=== PATIENT | female | born 1940 | race Caucasian/White ===

== ENCOUNTER 2024-02-15 07:57 | Day surgery (SDC) | payer OTHER, MEDICARE ==
[2024-02-10 12:10] LABS: PT Prothrombin Time 10.4 SECONDS (9.4-12.5); Protime INR 0.93
--- NOTE | 2024-02-10 12:11 | RAD REPORT ---
EXAMINATION: TWO VIEW CHEST XR CLINICAL INDICATION: Female, 83 years old. [facility] pre op for day surgery. Prior smoker. History of right breast surgery. TECHNIQUE: 2 view radiographs of the chest were performed. COMPARISON: No prior exam. FINDINGS: The lungs are hyperexpanded suggesting COPD. No pneumothorax or sizable effusion. The heart is normal in size. Mediastinal contours are unremarkable. IMPRESSION: No acute or significant abnormalities.
[2024-02-10 12:15] LABS: Absolute Eosinophils 0.1 K/uL (0-0.5); Absolute Lymphocytes (CBC) 3.3 K/uL (0.7-4.9); Absolute Monocytes 0.4 K/uL (0.1-1.3); Absolute Neutrophil 5.1 K/uL (1.8-8.0); Basophils % 0.4 % (0-1.3); Eosinophils % 1.3 % (0-4.4); Hematocrit 44.5 % (36.0-45.0); Hemoglobin 14.9 g/dL (12.0-15.0); Lymphocytes % 36.3 % (15.3-44.8); MCH 31.2 pg (27.0-35.0); MCHC 33.5 g/dL (32.0-36.0); MPV 7.2 fL (7.6-11.3); Monocytes % 4.7 % (3.3-12.3); Neutrophils % 57.3 % (41.7-73.7); Nucleated Red Blood Cells % 0.1 % (0-0); Platelets 368 thou/uL (152-406); RBC Red Blood Cell Count 4.79 M/uL (3.86-4.86); Red Cell Distribution Width 13.2 % (12.1-15.2)
[2024-02-10 12:19] LABS: Anion Gap 7.4 mEq/L (5.0-15.0); Potassium 4.4 mEq/L (3.5-5.1)
--- NOTE | 2024-02-14 12:09 | EKG ---
Test Date: 2024-02-10 Test Time: 12:53:16 Medical Charge Entry Specialist: RODY MEASUREMENT RESULTS: Intervals: Rate: 67 OR: 148 QRSD: 78 QT: 408 QTc: 431 [place]: P: 79 OR: 148 QRS: 80 T: 70 INTERPRETIVE STATEMENTS: Normal sinus rhythm Normal ECG No previous ECG available for comparison Electronically Signed On 02-14-24 12:03:28 [employer] COORDINATOR by Brigido Kohler
[2024-02-15] MEDS: Ringers Lactate 1,000 ML IV ONE (08:30)
[2024-02-15] MEDS ORDERED: propofoL 200 MG/20 ML VIAL IV ONE (09:34)
[2024-02-15] MEDS ORDERED: FENTANYL CITR 100 MCG/2 ML ONE (09:36)
[2024-02-15] MEDS ORDERED: LIDOCAINE 1% MPF 5 ML VIAL ONE (09:36)
[2024-02-15] MEDS ORDERED: ONDANSETRON 4 MG/2 ML VIAL ONE (09:37)
[2024-02-15] MEDS ORDERED: dexAMETHasone 10 MG/ML VIAL ONE (10:38)
[2024-02-15] MEDS: CEFAZOLIN SODIUM 1 GM/VIAL ONE (10:39)
[2024-02-15] MEDS ORDERED: GLYCOPYRROLATE 0.2 MG/ML SYR ONE (10:51)
[2024-02-15] MEDS ORDERED: EPHEDRINE SULF 50 MG/ML VIAL ONE (10:51)
[2024-02-15] MEDS: Gemcitabine 52.6 ML IS ONE (11:15)
[2024-02-15 11:26] VITALS: O2SAT 100
[2024-02-15] MEDS ORDERED: CODEINE 30MG/APAP 300MG TAB PO PRN (11:48)
--- NOTE | 2024-02-15 11:54 | P.OP ---
Date of Service: 02/15/24 Preoperative diagnosis: Bladder lesion/tumor Postoperative diagnosis: Papillary urothelial neoplasm Principal procedures: Cystoscopy with bladder biopsies and fulguration Insertion of 18 [place]orean urethral Brar catheter Instillation of gemcitabine 2 g and 50 cc normal saline intravesical chemotherapy Indication for procedure: 83-year-old woman with history of microscopic hematuria and underwent evaluation including cystoscopy which revealed a sessile and slightly papillary tumor lateral to the left ureteral orifice. She was counseled on the potential that it might represent a malignancy, and biopsy with fulguration was recommended. Also, given its clinical appearance suspicious for low-grade papillary urothelial carcinoma, I did recommend a dose of intravesical gemcitabine perioperatively to decrease the risk of recurrence and/or new sites of tumor implantation. Procedure note: The patient was consented in the preoperative holding area before being transferred to the operative suite where general anesthesia was induced. She was given Ancef 1 g IV antimicrobial prophylaxis, and pneumoboots were provided for DVT prophylaxis. She was placed in the lithotomy position, padded and secured to the table appropriately. Her genitalia was prepped with Hibiclens and she was draped in standard fashion. 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 As a result, I utilized the blunt obturator and was able to navigate the sheath via her urethra into her bladder with relative ease. I decompressed the bladder of fluid and clear yellow urine. I then surveyed the bladder in its entirety. The ureteral orifices were orthotopic in location, and lateral to the left ureteral orifice and slightly posteriorly, there was a 1 to 1.5 cm area of sessile with slightly papillary tumor with some cystic change peripherally. As a result, I utilized a cold cup biopsy forcep to grasp and remove the entirety of the involved mucosa ensuring to take a deeper biopsy to ensure muscularis propria sampling. Once the entiret y of the involved mucosa was removed, I then utilized a Bugbee electrode with a cautery setting of 30, and sterile water, to fulgurate the entire base of the lesion taking care to avoid fulgurating over the ureteral orifice opening, which was very close and within millimeters of the edge of the fulgurated tissue. In the end, the area was hemostatic as observed with the bladder decompressed; so I remove the cystoscope and placed an 18 [place]cu[place] Brar catheter into her bladder again with slight difficulty given the mucosal prolapse. I then decompressed the bladder completely with 15 cc of sterile water in the balloon, and then retrograde instilled 2 g of gemcitabine and 50 cc normal saline into her bladder. She evidenced no sign of adverse reaction while still being awakened from anesthesia. She was then taken out of the lithotomy position, transferred to a stretcher, and then transferred to the recovery room in good condition. Complications: None Discharge disposition: Follow-up should be established in 1 to 2 weeks time to discuss the results of the pathology and determine next steps in evaluation/management.
[2024-02-15 12:06] VITALS: BP 144/79; TEMP 97.7
[2024-02-15] MEDS ORDERED: Ringers Lactate 1,000 ML IV ONE (15:40)
[2024-02-15] MEDS ORDERED: PHENAZOPYRIDINE 100MG TAB PO ONE (16:39)
[2024-02-15] MEDS: PHENAZOPYRIDINE 100MG TAB PO ONE (16:41)
== END 2024-02-15 18:15 | disposition home or self-care (01) ==
LOC: OR 07:57
PROVIDERS: ATTEND Urology
PROC: 0TBB8ZX Excision of Bladder, Via Natural or Artificial Opening Endoscopic, Diagnostic (ICD-10-PCS; 2024-02-15)
PROC: 3E0K705 Introduction of Other Antineoplastic into Genitourinary Tract, Via Natural or Artificial Opening (ICD-10-PCS; principal; 2024-02-15 10:00)
DX: D30.3 Benign neoplasm of bladder (principal); N32.9 Bladder disorder, unspecified; N30.81 Other cystitis with hematuria
CPT/HCPCS: 51720; 52204; 93005; 87088; 85025; 87086; 80048; 36415; 85610; 88305; 71046; J2704; J2003; J3010; J1100; J2405; J7120 ×2; J0690